=== PATIENT | male | born 1995 | race Caucasian/White ===

== ENCOUNTER 2016-09-01 14:57 | Emergency (ER) | payer SELFPAY ==
[~2016-09-01] VITALS: Ht 172.7 cm; Wt 85.7 kg
[2016-09-01 15:06] VITALS: BP 137/98
--- NOTE | 2016-09-01 16:52 | NUR ---
Patient ambulated to bed 7. RN evaluating patient at bedside.
--- NOTE | 2016-09-01 16:55 | NUR ---
PATIENT PRESENTS TO ED WITH LEFT GREAT TOE PAIN X2 WKS . PT STATES . DENIES N/V/D; SKIN IS PINK/WARM/DRY; AAOX4 WITH EVEN AND STEADY GAIT; LUNGS CLEAR BL; HR EVEN AND REGULAR; PT DENIES ANY FEVER, CP, SOB, OR COUGH AT THIS TIME; PATIENT STATES PAIN OF 7/10 AT THIS TIME; VSS; PATIENT POSITIONED FOR COMFORT; HOB ELEVATED; BEDRAILS UP X2; BED DOWN. ER MD MADE AWARE OF PT STATUS.
[2016-09-01] MEDS ORDERED: BACITRACIN OINT 500 UNITS/GM PKT TP ONE (17:05)
--- NOTE | 2016-09-01 17:06 | NUR ---
Patient discharged with v/s stable. Written and verbal after care instructions given and explained. Patient alert, oriented and verbalized understanding of instructions. Ambulatory with steady gait. All questions addressed prior to discharge. ID band removed. Patient advised to follow up with PMD. Rx of NEOSPORIN/ KEFLEX given. Patient educated on indication of medication including possible reaction and side effects. Opportunity to ask questions provided and answered.
[2016-09-01 17:07] VITALS: BP 128/68
== END 2016-09-01 17:06 | disposition home or self-care (01) ==
LOC: MED 14:57
DX: L08.9 Local infection of the skin and subcutaneous tissue, unspecified (principal); R03.0 Elevated blood-pressure reading, without diagnosis of hypertension; F17.200 Nicotine dependence, unspecified, uncomplicated; Z71.6 Tobacco abuse counseling
CPT/HCPCS: 99283